=== PATIENT | female | born 1985 | race Caucasian/White ===

== ENCOUNTER → 2023-09-19 12:00 | Outpatient (REF) | payer OTHER, SELFPAY | LOC: DHSLP 12:00 | PROVIDERS: ATTENDING PHYSICIAN Family Medicine | DX: G47.30 Sleep apnea, unspecified (principal); R06.83 Snoring | CPT/HCPCS: 95810 ==

== ENCOUNTER → 2024-10-28 09:44 | Outpatient (REF) | payer OTHER, SELFPAY | LOC: RAD 09:44 | PROVIDERS: ATTENDING PHYSICIAN Physician Assistant | DX: M54.2 Cervicalgia (principal) | CPT/HCPCS: 76536 ==

== ENCOUNTER 2024-10-31 09:30 | Emergency (ER) | payer OTHER, SELFPAY ==
[2024-10-31 09:35] VITALS: BP 145/105
--- NOTE | 2024-10-31 11:12 | ED.GENMED ---
History of Present Illness
General
Chief Complaint: Oral/Mouth Problem
Source: patient
Exam Limitations: none
Time Seen by Provider: 10/31/24 10:32
Nursing documentation reviewed up to this point in time: agreed with
History of Present Illness
History of Present Illness:
The patient is a 39-year-old female presenting with a worsening throat condition. She denies experiencing difficulty swallowing, breathing, or any nausea or vomiting. She reported having chills earlier in the morning, but denies fever. She does not
report any weakness in her extremities or abdominal pain. There is no reported difficulty in opening the mouth.
Past History
Past History
ED Past Medical History: Asthma (slight), GERD, Hypothyroidism, Psychiatric (Bipolar, Anxiety), Other (Pulmonary Emboli, migraine headaches, status post elective ) and Other (History of rectal bleeding, Belly's palsey, Lyme disease, Brain
Aneurysm )
ED Past Surgical History: (X4) and Gynecological
Social History
Tobacco: Former smoker
Alcohol: None
Drug: None
Personal:
Living: with family
Employment: Not employed
Family History
Family History: Other (Stroke in older members of her family)
Review of Systems
Review of Systems
Allergies reviewed?: Yes
All Other Systems: ROS reviewed and negative except as documented in HPI and ROS
Phy Exam
Physical Exam
Physical Exam:
GENERAL: Alert , in no apparent distress
EYE: pupils equal and reactive
NECK: Supple, no significant adenopathy.
ENT: Normal posterior pharynx o/p clr, mmm.
CARDIAC: Regular rate and rhythm .
LUNGS: Clear breath sounds bilaterally, no acute respiratory distress, no wheezes/rales/rhonchi
ABDOMEN: Soft, without focal tenderness, no r/g, no cvat
NEUROLOGICAL: Alert and oriented, no focal neuro deficits
SKIN: Warm and dry, skin intact.
MUSCULOSKELETAL: No edema, well perfused.
PSYCH: Normal and appropriate interaction.
Swelling to the right lateral anterior neck just below the right mandible
Course
Orders/Labs/Results
Orders:
Orders
10/31/24 11:[address] [CT Neck With Iv Contrast] Urgent
Comment:
Reason For Exam: right anterior neck jaw swelling TTP
10/31/24 11:12
Test Result ONCE
10/31/24 11:27
BMP [Basic Metabolic Panel] Urgent
Beta Hcg Serum Qualitative Screen [HCG, Serum Qualitative Screen] Urgent
CBC/With Diff [Complete Blood Count/With Diff] Urgent
10/31/24 13:57
Dexamethasone Sod Phosphate [Decadron] 10 mg IV NOW STA
10/31/24 14:19
Ampicillin/Sulbactam 3 G [Unasyn] 3 gm 0.9% Sodium Chloride 100 ml [Nss] 100 ml IV NOW
Abnormal Lab Results
10/31/24
11:27
WBC 15.0 H 10^3/uL
(4.8-10.8)
Abs Immat Gran (auto) 0.1 H 10^3/uL
(0-0.05)
Absolute Neuts (auto) 11.0 H 10^3/uL
(1.4-6.5)
Absolute Monos (auto) 1.4 H 10^3/uL
(0.1-0.6)
Lymphocytes % 15.9 L %
(20.5-51.1)
Creatinine 0.5 L mg/dL
(0.6-1.0)
10/31/24 11:27
10/31/24 11:27
Vital Signs
Initial and Last Documented VS:
Initial Vital Signs
Temp Pulse Resp BP Pulse Ox
97.2 F 103 16 145/105 99
10/31/24 09:35 10/31/24 09:35 10/31/24 09:35 10/31/24 09:35 10/31/24 09:35
Last Documented Vital Signs
Temp Pulse Resp BP Pulse Ox
97.2 F 103 16 145/105 99
10/31/24 09:35 10/31/24 09:35 10/31/24 09:35 10/31/24 09:35 10/31/24 09:35
MDM/Problems Addressed
MDM/Problems Addressed:
39-year-old female presenting with concerns of right-sided anterior neck swelling.
A computed tomography scan with contrast of the neck is ordered to assess for the presence of deeper space infection, abscess, or collection.
The Differential Diagnosis includes, in no particular order and is not limited to:
1. Pharyngitis
2. Tonsillitis
3. Peritonsillar Abscess
4. Retropharyngeal Abscess
5. Epiglottitis
6. Lymphadenopathy
7. Viral Upper Respiratory Infection
8. Bacterial Upper Respiratory Infection
9. Laryngitis
10. Submandibular Space Infection
CT scan showing possible salivary gland inflammation and infection. Possible small focus of abscess though subcentimeter in size. Case was discussed with ENT they recommend antibiotics and steroids and close outpatient follow-up. Return
precautions given.
*Critical Care Note
Total Time (30-74mins, 75-104mins- exclusive of procedures): Not Applicable
ED Attending Note
-
Portions of this chart may have been created with voice recognition software.� Occasional wrong word or��sound alike� substitutions may have occurred due to the inherent limitations of voice recognition software.
Discharge Plan
Departure
Patient Disposition: Home (Routine Discharge)
Date of Disposition: 10/31/24
Time of Disposition: 14:25
Patient with high blood pressure during this ER visit?: No
Condition: Good
Covid-19: Not Applicable
Discharge Problem:
Sialadenitis, Neck infection
Prescriptions:
New
amoxicillin-pot clavulanate 875-125 mg tablet
1 tab PO BID 7 Days Qty: 14 0RF
prednisone 10 mg Tablet
See Rx Instructions .ROUTE .COMPLEX Qty: 20 0RF
Rx Instructions:
Take By Mouth:
40 mg daily x2 days, 30 mg daily x2 days,
20 mg daily x2 days, 10 mg daily x2 days.
No Action
levothyroxine 25 mcg Tablet
25 mcg PO DAILY
acetaminophen [Tylenol] 325 mg Tablet
650 mg PO Q6HPRN PRN (Reason: mild pain)
cetirizine [Zyrtec] 10 mg Tablet
10 mg PO HS
amitriptyline 50 mg Tablet
50 mg PO HS
lisinopril 10 mg Tablet
10 mg PO DAILY
Referrals:
Juan Spencer DO [Family Provider, Family Practice]
Angela Pitts MD [Active, Otology]
Activity Restrictions/Additional Instructions:
You came to the emergency department today with concerns of swelling to the right jaw region. Here you you are found to have inflammation on the CT scan. Could be consistent with an infection. Please take the prescribed antibiotic as well as
steroid follow-up closely with ENT. Return immediately for any progressive symptoms.
Interventions
Interventions:
*Risk Screen - Suicide Last Done: 10/31/24 11:30
*General Assessment Last Done: 10/31/24 11:30
*Neglect/Abuse Screening Last Done: 10/31/24 11:30
Discharge Date and Time
Print Language: GREENLAND[place]
[2024-10-31 11:30] VITALS: BMI 29.6
[2024-10-31 11:40] LABS: % Basophils 0.4 % (0-2); % Eosinophils 0.6 % (0-6); % Immature Granulocytes 0.3 % (0-0.5); % Lymphocytes 15.9 % (20.5-51.1); % Monocytes 9.1 % (1.7-9.3); % Neutrophils 73.7 % (42.2-75.2); Absolute Basophils 0.1 10^3/uL (0-0.2); Absolute Eosinophils 0.1 10^3/uL (0-0.7); Absolute Immature Granulocytes 0.1 10^3/uL (0-0.05); Absolute Lymphocytes 2.4 10^3/uL (1.2-3.4); Absolute Monocytes 1.4 10^3/uL (0.1-0.6); Hematocrit 43.9 % (37.0-47.0); Mean Corp Hgb Conc. 34.2 g/dL (33.0-37.0); Mean Corpuscular Hgb 29.9 pg (27.0-31.0); Mean Corpuscular Volume 87.5 fL (81.0-99.0); Mean Platelet Volume 10.2 fL (7.4-10.4); Nucleated Red Blood Cells % 0 %; Platelet Count 222 10^3/uL (130-400); Red Blood Cell Count 5.02 10^6/uL (4.20-5.40); Red Cell Dist. Width 13.2 % (11.5-14.5)
[2024-10-31 11:51] LABS: HCG, Serum Qualitative Screen Negative
[2024-10-31 12:07] LABS: Blood Urea Nitrogen 8 mg/dl (7-17); Calcium 9.4 mg/dl (8.4-10.2); Carbon Dioxide 27 mmol/L (22-30); Chloride 106 mmol/L (98-107); Estimated Creatinine Clearance 113 ml/min; Glucose 89 mg/dl (70-99); Potassium 3.9 mmol/L (3.5-5.1); Sodium 139 mmol/L (135-145); eGFR > 60.00
[2024-10-31] MEDS: UNASYN IV (14:51)
[2024-10-31] MEDS: DECADRON 10 MG IV (14:51)
[2024-10-31 14:59] VITALS: BP 126/82
== END 2024-10-31 15:31 | disposition home or self-care (01) ==
LOC: EMR 09:30
PROVIDERS: Physician Assistant; EMERGENCY PHYSICIAN Emergency Medicine; FAMILY PHYSICIAN Family Medicine
DX: K11.20 Sialoadenitis, unspecified (principal); J02.9 Acute pharyngitis, unspecified; J45.909 Unspecified asthma, uncomplicated; Z87.891 Personal history of nicotine dependence
CPT/HCPCS: 96374; 96375; 99284; 70491; 80048; 84703; 85025; Q9967